=== PATIENT | male | born 1990 | race Native Hawaiian/Other Pacific Islander ===

== ENCOUNTER 2017-05-21 06:17 | Emergency (ER) | payer OTHER ==
[2017-05-21 06:48] LABS: ABSOLUTE LYMPHOCYTES (AUTO) 1.6 10^3/uL (0.5-4.7); ABSOLUTE NEUT (AUTO) 11.3 10^3/uL (1.7-8.2); BASOPHILS % (AUTO) 0.2 % (0-2); EOSINOPHILS % (AUTO) 0.2 % (0-6); HEMATOCRIT 49.1 % (37.9-51.0); HEMOGLOBIN 16.2 g/dL (13.5-17.0); HGB HCT DIFFERENCE -0.5; LYMPHOCYTES % (AUTO) 11.5 % (13-45); MEAN CORPUSCULAR HEMOGLOBIN 29.9 pg (27.0-33.4); MEAN CORPUSCULAR VOLUME 91 fl (80-97); MONOCYTES % (AUTO) 7.4 % (3-13); RED CELL DISTRIBUTION WIDTH 12.7 % (11.5-14.0); SEGMENTED NEUTROPHILS % (AUTO) 80.7 % (42-78)
[2017-05-21 07:05] LABS: ALANINE AMINOTRANSFERASE 35 U/L (21-72); ALBUMIN 4.7 g/dL (3.5-5.0); ALKALINE PHOSPHATASE 60 U/L (38-126); ANION GAP 15 (5-19); ASPARTATE AMINO TRANSFERASE 22 U/L (17-59); BILIRUBIN,DIRECT 0.4 mg/dL (0.0-0.4); BILIRUBIN,TOTAL 0.8 mg/dL (0.2-1.3); BLOOD UREA NITROGEN 10 mg/dL (7-20); CALCIUM 9.7 mg/dL (8.4-10.2); CARBON DIOXIDE 18 mmol/L (22-30); CHLORIDE 110 mmol/L (98-107); CREATININE RESULT 1.12 mg/dL (0.52-1.25); GLUCOSE 109 mg/dL (75-110); POTASSIUM 4.2 mmol/L (3.6-5.0); SODIUM 143.1 mmol/L (137-145)
[2017-05-21 07:07] LABS: ALCOHOL < 10 mg/dL (NONE DETECTED)
--- NOTE | 2017-05-21 08:17 | EKG REPORT ---
SEVERITY:- NORMAL ECG - SINUS RHYTHM : Confirmed by: Jose De Jesus Collins MD 21-May-2017 08:16:54
[2017-05-21 11:33] LABS: APPEARANCE,URINE SLIGHTLY-CLOUDY; BILIRUBIN,URINE NEGATIVE (NEGATIVE); GLUCOSE, URINE NEGATIVE (NEGATIVE); KETONES,URINE 20 mg/dL (NEGATIVE); LEUKOCYTE ESTERASE,URINE NEGATIVE (NEGATIVE); NITRITE,URINE NEGATIVE (NEGATIVE); PROTEIN,URINE NEGATIVE (NEGATIVE); URINE SPECIFIC GRAVITY 1.023
[2017-05-21 11:45] LABS: URINE BARBITURATES SCREEN NEGATIVE; URINE METHADONE SCREEN NEGATIVE; URINE OPIATES LOW NEGATIVE; URINE PHENCYCLIDINE SCREEN NEGATIVE
[2017-05-21] MEDS: HALOPERIDOL 5 MG TABLET PO SCH ×3 (12:04→23:39)
--- NOTE | 2017-05-21 14:32 | ER Document Report ---
ED General - General Chief Complaint: Psych Problem Stated Complaint: POSSIBLY HEARING VOICES Time Seen by Provider: 05/21/17 06:24 - HPI Patient complains to provider of: Psychiatric evaluation Notes: Patient was brought in by EMS and come to police custody after being found naked in the median of 17. Patient endorses a history of schizophrenia states he has not taken any medications last 4 months. Patient has all his belongings are at a local hotel room. Patient states he is hearing some voices patient denies any homicidal suicidal ideation at this time to myself patient states that he wants a mental health evaluation multiple admissions in the past is concerned that his schizophrenia is getting out of control. Denies any other complaints denies headaches fevers chills nausea vomiting chest pain abdominal pain Past Medical History - Social History Smoking Status: Unknown if Ever Smoked Family History: Reviewed & Not Pertinent Review of Systems - Review of Systems Constitutional: No symptoms reported EENT: No symptoms reported Cardiovascular: No symptoms reported Respiratory: No symptoms reported Gastrointestinal: No symptoms reported Genitourinary: No symptoms reported Male Genitourinary: No symptoms reported Musculoskeletal: No symptoms reported Skin: No symptoms reported Hematologic/Lymphatic: No symptoms reported Neurological/Psychological: Hallucinations -: Yes All other systems reviewed and negative Physical Exam - Vital signs Vitals: Temp Pulse BP Pulse Ox 98.6 F 98 107/71 98 05/21/17 06:22 05/21/17 06:22 05/21/17 06:22 05/21/17 06:22 Interpretation: Normal - General General appearance: Appears well, Alert - HEENT Head: Normocephalic, Atraumatic Eyes: Normal Pupils: PERRL - Respiratory Respiratory status: No respiratory distress Chest status: Nontender Breath sounds: Normal Chest palpation: Normal - Cardiovascular Rhythm: Regular Heart sounds: Normal auscultation Murmur: No - Abdominal Inspection: Normal Distension: No distension Bowel sounds: Normal Tenderness: Nontender Organomegaly: No organomegaly - Back Back: Normal, Nontender - Extremities General upper extremity: Normal inspection, Nontender, Normal color, Normal ROM , Normal temperature General lower extremity: Normal inspection, Nontender, Normal color, Normal ROM , Normal temperature, Normal weight bearing. No: Sahara's sign - Neurological Neuro grossly intact: Yes Cognition: Normal Orientation: AAOx4 Stacey Coma Scale Eye Opening: Spontaneous Eden Coma Scale Verbal: Oriented Stacey Coma Scale Motor: Obeys Commands Eden Coma Scale Total: 15 Speech: Normal Motor strength normal: LUE, RUE, LLE, RLE Sensory: Normal - Psychological Associated symptoms: Other - Hyperverbal - Skin Skin Temperature: Warm Skin Moisture: Dry Skin Color: Normal Course - Re-evaluation Re-evalutation: 05/21/17 14:31 Patient presents for psychiatric evaluation. At this time no concerning pathology on laboratory studies patient will be medically cleared for his eval - Vital Signs Vital signs: Temp Pulse Resp BP Pulse Ox 98.6 F 98 16 107/71 98 05/21/17 06:22 05/21/17 06:22 05/21/17 06:24 05/21/17 06:22 05/21/17 06:22 - Laboratory Result Diagrams: 05/21/17 06:30 05/21/17 06:30 Laboratory results interpreted by me: 05/21/17 05/21/17 05/21/17 06:30 06:30 11:05 WBC 14.0 H Seg Neutrophils % 80.7 H Lymphocytes % 11.5 L Absolute Neutrophils 11.3 H Chloride 110 H Carbon Dioxide 18 L Urine Ketones 20 H Urine Blood MODERATE H Urine Urobilinogen 2.0 H Acetaminophen < 10 L Discharge - Discharge Clinical Impression: Schizophrenia, Hallucinations Condition: Good Disposition: PSYCH HOSP/UNIT
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
[2017-05-21] MEDS: BENZTROPINE MESYLATE 1 MG TABLET PO SCH (21:29)
[2017-05-21] MEDS ORDERED: NICOTINE 21 MG/24 HR PATCH.TD24 TD ONE (22:52)
[2017-05-22] MEDS: HALOPERIDOL 5 MG TABLET PO SCH ×4 (06:44→23:26)
--- NOTE | 2017-05-22 09:21 | ER Document Report ---
Doctor's Note Notes: 05/22/17 09:20 I have evaluated this pt. this am and he has no c/o at this time. He feels all of his needs are being met and his physical exam is normal. He is awaiting disposition per mental health.
[2017-05-22] MEDS ORDERED: OLANZAPINE INJ/PF 10 MG SDV IM ONE (18:43)
[2017-05-22] MEDS: BENZTROPINE MESYLATE 1 MG TABLET PO SCH (21:02)
[2017-05-23] MEDS: HALOPERIDOL 5 MG TABLET PO SCH (06:42)
--- NOTE | 2017-05-23 09:28 | ER Document Report ---
Doctor's Note Notes: 05/23/17 09:27 Medical rounds: Chart reviewed and patient interviewed briefly. Patient verbalizes no complaints. Vital signs are stable. Patient is sleeping but easily arousable. He is alert, cooperative, and in no distress. Laboratory values are satisfactory. He remains medically stable, pending reevaluation by psych.
[2017-05-23] MEDS: CHLORPROMAZINE HCL INJ 25 MG/1 ML AMPULE IM SCH ×2 (11:37→22:02)
[2017-05-23 12:09] LABS: ALANINE AMINOTRANSFERASE 35 U/L (21-72); ALBUMIN 4.1 g/dL (3.5-5.0); ALKALINE PHOSPHATASE 44 U/L (38-126); ANION GAP 10 (5-19); ASPARTATE AMINO TRANSFERASE 22 U/L (17-59); BILIRUBIN,DIRECT 0.4 mg/dL (0.0-0.4); BILIRUBIN,TOTAL 0.5 mg/dL (0.2-1.3); BLOOD UREA NITROGEN 21 mg/dL (7-20); CALCIUM 9.7 mg/dL (8.4-10.2); CARBON DIOXIDE 24 mmol/L (22-30); CHLORIDE 107 mmol/L (98-107); CREATININE RESULT 1.09 mg/dL (0.52-1.25); GLUCOSE 101 mg/dL (75-110); MAGNESIUM 2.3 mg/dL (1.6-2.3); POTASSIUM 4.6 mmol/L (3.6-5.0); SODIUM 140.7 mmol/L (137-145); TOTAL PROTEIN 6.9 g/dL (6.3-8.2)
[2017-05-23] MEDS: BENZTROPINE MESYLATE 1 MG TABLET PO SCH (18:00)
[2017-05-24] MEDS: CHLORPROMAZINE HCL INJ 25 MG/1 ML AMPULE IM SCH ×2 (07:08→14:55)
[2017-05-24] MEDS: BENZTROPINE MESYLATE 1 MG TABLET PO SCH (11:12)
[2017-05-24 15:39] VITALS: BP 128/74
--- NOTE | 2017-05-24 19:55 | ER Document Report ---
Doctor's Note Notes: 05/24/17 19:50 Medical rounds: Chart reviewed. Patient verbalizes no complaints. Vital signs are stable. Patient was evaluated by psychiatry and recommendations are as noted per chart. Patient is comfortable with follow-up plans and understands warning signs to return for.
== END 2017-05-24 14:58 | disposition home or self-care (01) ==
LOC: ER 06:17
DX: F20.9 Schizophrenia, unspecified (principal); R44.0 Auditory hallucinations; Z91.14 Patient's other noncompliance with medication regimen
CPT/HCPCS: 93005; 99285; 96372; 36415; 80307 ×4; 83735; 85025; 80053; 81001; 93010; J3230

== ENCOUNTER 2017-06-13 23:41 | Emergency (ER) | payer OTHER ==
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
[2017-06-14 01:49] LABS: ABSOLUTE BASOPHILS # (AUTO) 0.1 10^3/uL (0.0-0.2); ABSOLUTE EOSINOPHILS # (AUTO) 0.1 10^3/uL (0.0-0.6); ABSOLUTE LYMPHOCYTES (AUTO) 3.3 10^3/uL (0.5-4.7); ABSOLUTE MONOCYTES (AUTO) 0.9 10^3/uL (0.1-1.4); ABSOLUTE NEUT (AUTO) 8.5 10^3/uL (1.7-8.2); BASOPHILS % (AUTO) 0.7 % (0-2); EOSINOPHILS % (AUTO) 1.2 % (0-6); HEMATOCRIT 41.4 % (37.9-51.0); HEMOGLOBIN 14.2 g/dL (13.5-17.0); HGB HCT DIFFERENCE 1.2; LYMPHOCYTES % (AUTO) 25.6 % (13-45); MEAN CORPUSCULAR HEMOGLOBIN 31.4 pg (27.0-33.4); MEAN CORPUSCULAR HGB CONC 34.3 g/dL (32.0-36.0); MEAN CORPUSCULAR VOLUME 92 fl (80-97); MONOCYTES % (AUTO) 7.2 % (3-13); RED BLOOD COUNT 4.52 10^6/uL (4.35-5.55); RED CELL DISTRIBUTION WIDTH 12.8 % (11.5-14.0); SEGMENTED NEUTROPHILS % (AUTO) 65.3 % (42-78)
[2017-06-14 02:21] LABS: ALANINE AMINOTRANSFERASE 69 U/L (21-72); ALBUMIN 4.2 g/dL (3.5-5.0); ALKALINE PHOSPHATASE 56 U/L (38-126); ANION GAP 14 (5-19); ASPARTATE AMINO TRANSFERASE 29 U/L (17-59); BILIRUBIN,DIRECT 0.5 mg/dL (0.0-0.4); BILIRUBIN,TOTAL 0.7 mg/dL (0.2-1.3); BLOOD UREA NITROGEN 18 mg/dL (7-20); CALCIUM 9.4 mg/dL (8.4-10.2); CARBON DIOXIDE 23 mmol/L (22-30); CHLORIDE 104 mmol/L (98-107); CREATININE RESULT 0.96 mg/dL (0.52-1.25); GLUCOSE 88 mg/dL (75-110); POTASSIUM 4.4 mmol/L (3.6-5.0); SODIUM 140.7 mmol/L (137-145); TOTAL PROTEIN 7.2 g/dL (6.3-8.2)
[2017-06-14 02:22] LABS: ALCOHOL < 10 mg/dL (NONE DETECTED)
[2017-06-14 03:06] LABS: APPEARANCE,URINE CLEAR; BILIRUBIN,URINE NEGATIVE (NEGATIVE); GLUCOSE, URINE NEGATIVE (NEGATIVE); KETONES,URINE NEGATIVE (NEGATIVE); LEUKOCYTE ESTERASE,URINE TRACE (NEGATIVE); NITRITE,URINE NEGATIVE (NEGATIVE); PROTEIN,URINE NEGATIVE (NEGATIVE); URINE SPECIFIC GRAVITY 1.025
[2017-06-14 04:22] LABS: URINE BARBITURATES SCREEN NEGATIVE; URINE METHADONE SCREEN NEGATIVE; URINE OPIATES LOW NEGATIVE; URINE PHENCYCLIDINE SCREEN NEGATIVE
--- NOTE | 2017-06-14 07:52 | EKG REPORT ---
SEVERITY:- NORMAL ECG - SINUS RHYTHM ST ELEV, PROBABLE NORMAL EARLY REPOL PATTERN : Confirmed by: Jeannie Gregg 14-Jun-2017 07:51:49
--- NOTE | 2017-06-14 13:47 | ER Document Report ---
ED Psych Disorder / Suicide - General Chief Complaint: Psych Problem Stated Complaint: PSYCH EVAL Time Seen by Provider: 06/14/17 00:37 Information source: Patient, Parent, [facility] Records TRAVEL OUTSIDE OF THE [place] IN LAST 30 DAYS: No - HPI Patient complains to provider of: Other - paranoia Onset: Other - this is chronic for this patient surrounding his relationship with parents Onset was: Cannot confirm Suicide Risk Factors: Male, Schizophrenia Normal mood: Yes Associated symptoms: Normal affect, Normal mood Similar symptoms previously: Yes Recently seen / treated by doctor: Yes [facility] Notes: Patient is a 26 year old male who presented last night with complaints of paranoia resulting in feeling unsafe in his home environment. Patient is known to this clinician and this department for a similar prior episode. Patient this morning states [facility] a 10 day inpatient psychiatric placement. Patient states he was administered the long lasting Invega injection prior to discharge. Patient states he does not feel safe living at home with his stepfather. He denies anything specific occurred last night. He states he has been taking his medications as prescribed. Patient states he has not yet [facility] with [facility] since [facility]. Patient provided verbal consent to contact his mother. Patient denies SI/HI. Mother, Allison states the patient was inpatient psych at [facility] until of last week. She states he was afraid someone was going to kill him, creatures were following him, and the voices were telling him to do things. She states everyone he sees is talking about him, he knows what they are saying, etc. Mother reports the patient has had 2 Invega shots within the past week, and "evidently it is not enough." Mother states the patient is afraid , and reports she set him up at a hotel room Wednesday evening, and Wednesday night he returned to the home stating he was not safe and the evil in the hotel was overwhelming. Mother states with the patient's paranoia he is not telling her everything and she is unsure of daily PO medications. Mother states he asked her last night to take him to the ER because this is where he said he would feel safe. Patient is A&O x4. Mood is euthymic with normal affect. Patient denies suicidal /homicidal ideations, intent, plan, or means. Patient denies A/V H; patient reports paranoia and delusions. Thought processes were organized. Conversational speech was WNL for prosody. Intellectual abilities were estimated within average range. Attention and focus were fair. Insight, judgment , impulse control were poor. Unspecified Schizophrenia and Other Psychotic Disorder Patient is psychiatrically cleared for discharge. Patient is recommended to follow up with the ME for medication management. Patient does not meet criteria for IVC as he denies SI/HI, and is not experiencing hallucinations commanding him to harm himself, others, or cause destruction. Patient does report paranoia surrounding his home environment as well as individuals he encounters; however, this is considered a chronic symptom for the patient, as documented by previous episode. I consulted with Dr. Pinon in regards to the care and management of this patient. - Related Data Allergies/Adverse Reactions: No Known Allergies Allergy (Unverified 05/21/17 19:12) Past Medical History - General Information source: Patient, Parent, [facility] Records - Social History Smoking Status: Current Every Day Smoker Cigarette use (# per day): Yes Smoking Education Provided: No Frequency of alcohol use: None Drug Abuse: None Lives with: Family Family History: Reviewed & Not Pertinent Patient has suicidal ideation: No Patient has homicidal ideation: No Renal/ Medical History: Denies: Hx Peritoneal Dialysis Psychiatric Medical History: Reports: Hx Schizophrenia Physical Exam - Vital signs Vitals: Temp Pulse Resp BP Pulse Ox 98.5 F 85 20 132/75 H 96 06/14/17 00:08 06/14/17 00:08 06/14/17 00:08 06/14/17 00:08 06/14/17 00:08 Course - Vital Signs Vital signs: Temp Pulse Resp BP Pulse Ox 98.1 F 67 15 117/62 96 06/14/17 06:34 06/14/17 06:34 06/14/17 06:34 06/14/17 06:34 06/14/17 00:08 - Laboratory Result Diagrams: 06/14/17 01:40 06/14/17 01:40 Laboratory results interpreted by me: 06/14/17 06/14/17 06/14/17 01:00 01:40 01:40 WBC 13.0 H Absolute Neutrophils 8.5 H Direct Bilirubin 0.5 H Urine Blood MODERATE H Urine Urobilinogen 4.0 H Ur Leukocyte Esterase TRACE H Acetaminophen < 10 L Discharge - Discharge Clinical Impression: Schizophrenia Qualifiers: Schizophrenia type: paranoid schizophrenia Qualified Code(s): F20.0 - Paranoid schizophrenia Condition: Stable Disposition: HOME, SELF-CARE Additional Instructions: Schizophrenia Schizophrenia is a chemical disorder that affects how the brain functions. The exact cause is unknown, but it tends to run in families. It is NOT caused by emotional trauma. Schizophrenia causes disordered thinking, including unusual beliefs and inability to "process" happenings around the patient. Patients with schizophrenia benefit greatly from medicine. These medicines are called antipsychotics. Never stop the medicine without the doctor 's approval. Counselling may help the patient deal with his disease. Schizophrenics require a very ordered environment. Stresses and sudden changes may bring out symptoms. Drugs and alcohol abuse may become problems. Contact the counsellor or crisis line if there are thoughts of suicide or of harming others, or if you become aware of unusual thoughts or beliefs. [facility] is working to schedule you an appointment with their mental health clinic. You will be contacted at the number you have provided to notify the date and time of this appointment, as soon as it is scheduled. Please engage in therapy to assist you with developing coping skills to manage your paranoia. Please take your medications as prescribed. Please return if your symptoms worsen. Referrals: [facility] [Provider Group] - Follow up as needed (We will contact you at the number provided once the ME calls this Department with your appointment time and date)
[2017-06-14 14:32] VITALS: BP 111/63
== END 2017-06-14 14:32 | disposition home or self-care (01) ==
LOC: ER 23:41
DX: F20.0 Paranoid schizophrenia (principal); Z79.899 Other long term (current) drug therapy; F17.210 Nicotine dependence, cigarettes, uncomplicated
CPT/HCPCS: 36415; 80053; 80307; 81001; 85025; 93005; 93010; 99284